=== PATIENT | male | born 1970 | race Caucasian/White ===

== ENCOUNTER 2016-09-27 16:10 | Emergency (ER) | payer SELFPAY ==
[~2016-09-27] VITALS: Ht 177.8 cm; Wt 79.1 kg
[2016-09-27] MEDS ORDERED: HYDR500 PO (16:29)
[2016-09-27] MEDS ORDERED: ONDANSETRON HCL 4 MG/2 ML VIAL IVP ONE (16:45)
[2016-09-27] MEDS ORDERED: HYDROmorphone 2 MG/ML SYRINGE IVP ONE (16:45)
[2016-09-27 17:08] LABS: HEMATOCRIT 26.4 % (41-53); HEMOGLOBIN 8.4 g/dL (13.5-17.5); MEAN CORPUSCULAR HEMOGLOBIN 24.7 pg (26.0-34.0); MEAN CORPUSCULAR HGB CONC 31.9 G/dL (31.0-37.0); MEAN CORPUSCULAR VOLUME 77 fL (80-100); RED BLOOD CELL COUNT(AUTO) 3.41 MIL/uL (4.50-5.90); RED CELL DISTRIBUTION WIDTH 20.4 % (11.5-14.5)
[2016-09-27 17:20] LABS: PLATELET COUNT (AUTO) 1016 K/uL (150-450)
[2016-09-27 17:26] LABS: INR 1.1 (0.9-1.1); PROTHROMBIN TIME 11.9 SEC (9.4-11.6)
[2016-09-27] MEDS ORDERED: SODIUM CHLORIDE 0.9% 1,000 ML IV ONE (17:30)
[2016-09-27 17:51] LABS: ANION GAP 12 mmol/L (8-16); CALCIUM, TOTAL 8.8 mg/dL (8.8-10.5); CARBON DIOXIDE 28 mmol/L (22-29); CHLORIDE 100 mmol/L (98-107); CREATININE 0.77 mg/dL (0.60-1.30); GLOMERULAR FILTR. RATE CALC > 60 mL/min (>60); SODIUM SERUM 140 mmol/L (136-145); UREA NITROGEN, BLOOD 16 mg/dL (7-18)
[2016-09-27 17:55] LABS: ALANINE AMINOTRANSFERASE 15 U/L (12-78); ALBUMIN 3.9 g/dL (3.4-5.0); ASPARTATE AMINOTRANSFERASE 24 U/L (15-37); BILIRUBIN,TOTAL 0.7 mg/dL (0.1-1.0); LACTATE DEHYDROGENASE 907 U/L (85-227); TOTAL PROTEIN, SERUM 7.2 g/dL (6.4-8.2)
[2016-09-27] MEDS ORDERED: HYDROCODONE/ACETAMINOPHEN 5-325 MG TABLET PO ONE (18:15)
[2016-09-27 18:17] LABS: CORRECTED WHITE BLOOD COUNT 287.9 K/uL (4.5-11.0); LYMPHOCYTES % (MANUAL) 2 % (22-44); TOTAL CELLS COUNTED 100
[2016-09-27 18:18] LABS: WHITE BLOOD COUNT (AUTO) 287.9 K/uL (4.5-11.0)
[2016-09-27 18:23] LABS: LACTIC ACID 0.9 mmol/L (0.4-2.0)
[2016-09-27] MEDS ORDERED: HYDROXYUREA 500 MG CAPSULE PO ONE (19:00)
[2016-09-27 19:51] VITALS: BP 135/89
[2016-09-28 10:20] LABS: BAND NEUTROPHILS % (MANUAL) 8 % (1-5); EOSINOPHILS % (MANUAL) 7 % (1-6); METAMYELOCYTES % 20 % (0-0); MYELOCYTES % 35 % (0-0)
[2016-09-28 10:27] LABS: PROMYELOCYTES % 1 (0-0)
== END 2016-09-27 20:26 | disposition home or self-care (01) ==
LOC: EMS 16:12
DX: S70.12XA Contusion of left thigh, initial encounter (principal); C92.11 Chronic myeloid leukemia, BCR/ABL-positive, in remission; J90 Pleural effusion, not elsewhere classified; X58.XXXA Exposure to other specified factors, initial encounter; Y93.89 Activity, other specified; Y92.89 Other specified places as the place of occurrence of the external cause; Y99.8 Other external cause status
CPT/HCPCS: 36415; 71010; 73552; 80053; 83605; 83615; 83690; 85025; 85610; 85730; 86850; 86900; 86901; 96361; 96374; 96375; 99285; J1170; J2405; J7030